=== PATIENT | female | born 1950 | race African-American/Black ===

== ENCOUNTER 2021-08-28 09:31 | Inpatient (IN) ==
[2021-08-28 10:28] LABS: Albumin 3.4 G/DL (3.4-5.0); Bilirubin,Total 0.7 MG/DL (0.20-1.00); Calcium 9.1 MG/DL (8.5-10.1); Potassium 3.3 MMOL/L (3.5-5.1); Total Protein 7.5 G/DL (6.4-8.2)
[2021-08-28 11:23] LABS: Basophils % 0.8 % (0.0-0.8); Eosinophils # 0.3 10*3/uL (0.0-0.87); Eosinophils % 5.7 % (0.00-10.9); Hematocrit 43.6 VOL% (35.7-47.0); Hemoglobin 14.1 GM/DL (12.0-16.0); Immature Granulocytes % 0.2 %; Immature Granulocytes Absolute 0.01 #; Lymphocytes # 1.2 10*3/uL (1.4-4.0); Lymphocytes % 24.5 % (21.3-54.2); Mean Corpuscular HGB Conc 32.3 GM/DL (32-36); Mean Platelet Volume 12.2 FL (9.6-12.0); Monocytes % 11.6 % (1.7-12.7); Neutrophils % 57.2 % (38.7-73.9); Platelet Count 203 T/CUMM (130-400); Red Blood Count 4.69 MC/CUMM (3.8-5.5); Red Cell Distribution Width 13.5 % (9.3-17.3); White Blood Count 4.7 T/CUMM (4-12)
[2021-08-28] MEDS ORDERED: POTASSIUM CHLORIDE 20 MEQ TABLET PO STA (19:33)
[2021-08-28] MEDS ORDERED: ENOXAPARIN 100 MG/ML SYRINGE SUBCUT STA (19:46)
[2021-08-28] MEDS ORDERED: hydrALAZINE 20 MG/1 ML VIAL IV STA (19:56)
[2021-08-28] MEDS ORDERED: GLUCAGON 1 MG VIAL IM PRN (20:55)
[2021-08-28] MEDS ORDERED: ACETAMINOPHEN 325 MG TABLET PO PRN (21:00)
[2021-08-28] MEDS ORDERED: hydrALAZINE 20 MG/1 ML VIAL IV PRN (21:00)
[2021-08-28] MEDS ORDERED: POTASSIUM CHLORIDE RIDER 10 MEQ/100 ML PREMIX IV PRN (21:12)
[2021-08-28] MEDS ORDERED: MAGNESIUM SULF RIDER 2 GM/50 ML PREMIX IV PRN (21:12)
[2021-08-28] MEDS ORDERED: MAGNESIUM SULF RIDER 4 GM/100 ML PREMIX IV PRN (21:12)
[2021-08-28] MEDS ORDERED: MONTELUKAST 10 MG TABLET PO PRN (21:12)
[2021-08-28] MEDS ORDERED: DEXTROSE 50% 25 GM/50 ML SYRINGE IV PRN (21:18)
[2021-08-28] MEDS: METOPROLOL TARTRATE 50 MG TABLET PO SCH (22:00)
[2021-08-28] MEDS: ASPIRIN EC 81 MG TABLET PO SCH (22:00)
[2021-08-28] MEDS ORDERED: FUROSEMIDE 40 MG/4 ML VIAL IV STA (22:01)
[2021-08-28 22:32] LABS: INR 1.4; PT Patient Result 15.6 SECS (10.5-12.0); Partial Thromboplastin Time 33.6 SECS (23.8-32.1)
[2021-08-28] MEDS: DOCUSATE SODIUM 100 MG CAPSULE PO SCH (23:00)
[2021-08-29 04:46] LABS: Basophils % 0.6 % (0.0-0.8); Eosinophils # 0.3 10*3/uL (0.0-0.87); Eosinophils % 4.4 % (0.00-10.9); Hematocrit 44.3 VOL% (35.7-47.0); Hemoglobin 14.3 GM/DL (12.0-16.0); Immature Granulocytes % 0.2 %; Immature Granulocytes Absolute 0.01 #; Lymphocytes # 1.1 10*3/uL (1.4-4.0); Lymphocytes % 17.3 % (21.3-54.2); Mean Corpuscular HGB Conc 32.3 GM/DL (32-36); Mean Corpuscular Volume 92.1 FL (87-102); Mean Platelet Volume 12.1 FL (9.6-12.0); Monocytes % 13.8 % (1.7-12.7); Neutrophils % 63.7 % (38.7-73.9); Platelet Count 212 T/CUMM (130-400); Red Blood Count 4.81 MC/CUMM (3.8-5.5); Red Cell Distribution Width 13.3 % (9.3-17.3); White Blood Count 6.3 T/CUMM (4-12)
[2021-08-29 04:58] LABS: INR 1.1; PT Patient Result 12.8 SECS (10.5-12.0); Partial Thromboplastin Time 32.5 SECS (23.8-32.1)
[2021-08-29 05:28] LABS: Calcium 8.9 MG/DL (8.5-10.1); Potassium 3.3 MMOL/L (3.5-5.1); Risk Ratio 4.59; Thyroid Stimulating Hormone 1.89 uIU/ml (0.358-3.74); VLDL Cholesterol 8.6 MG/DL
[2021-08-29] MEDS ORDERED: POTASSIUM CHLORIDE 20 MEQ TABLET PO SCH (09:00)
[2021-08-29] MEDS ORDERED: ENOXAPARIN 100 MG/ML SYRINGE SUBCUT SCH (09:00)
[2021-08-29] MEDS: FOLIC ACID 1 MG TABLET PO SCH (09:31)
[2021-08-29] MEDS: METOPROLOL TARTRATE 50 MG TABLET PO SCH ×2 (09:31→20:57)
[2021-08-29] MEDS: PANTOPRAZOLE 40 MG TABLET PO SCH (09:32)
[2021-08-29] MEDS: ASPIRIN EC 81 MG TABLET PO SCH (09:32)
[2021-08-29] MEDS: LOSARTAN 50 MG TABLET PO SCH (09:32)
[2021-08-29] MEDS: allopurinoL 100 MG TABLET PO SCH (09:32)
[2021-08-29] MEDS: DOCUSATE SODIUM 100 MG CAPSULE PO SCH ×2 (09:33→20:57)
[2021-08-29] MEDS: FUROSEMIDE 40 MG/4 ML VIAL IV SCH (09:33)
[2021-08-29] MEDS ORDERED: POTASSIUM CHLORIDE 20 MEQ TABLET PO ONE (10:05)
[2021-08-29] MEDS: CHOLECALCIFEROL 400 UNIT TABLET PO SCH (11:38)
[2021-08-29] MEDS: FLUTICASONE 110 MCG/PUFF INHALER 12 GM INH SCH ×3 (11:39→21:10)
[2021-08-29] MEDS: SPIRONOLACTONE 50 MG TABLET PO SCH (11:40)
[2021-08-29] MEDS: ASCORBIC ACID 500 MG TABLET PO SCH ×2 (11:40→20:55)
[2021-08-29] MEDS: NON-FORMULARY MEDICATION (Mirabegron [Myrbetriq] 25 mg Tablet Extended Release 24 Hr) PO SCH (11:40)
[2021-08-29] MEDS: MAGNESIUM OXIDE 400 MG TABLET PO SCH ×2 (11:41→20:56)
[2021-08-29] MEDS ORDERED: cefTRIAXone 1,000 MG in SODIUM CHLORIDE 0.9% 100 ML IV SCH ×2 (20:00→21:30)
[2021-08-29] MEDS: AMIODARONE 200 MG TABLET PO SCH (20:55)
[2021-08-29] MEDS: APIXABAN 5 MG TABLET PO SCH (20:56)
[2021-08-29] MEDS ORDERED: ETANERCEPT 50 MG/ML SUBCUT SCH (21:12)
[2021-08-29] MEDS: DOXYCYCLINE HYCLATE INJ 100 MG in SODIUM CHLORIDE 0.9% 100 ML IV SCH (21:58)
[2021-08-30] MEDS: ONDANSETRON 4 MG/2 ML VIAL IV PRN ×2 (04:11→21:45)
[2021-08-30 06:24] LABS: Basophils % 0.5 % (0.0-0.8); Eosinophils # 0.3 10*3/uL (0.0-0.87); Eosinophils % 4.8 % (0.00-10.9); Hematocrit 44.8 VOL% (35.7-47.0); Hemoglobin 14.7 GM/DL (12.0-16.0); Immature Granulocytes % 0.3 %; Immature Granulocytes Absolute 0.02 #; Lymphocytes # 1.2 10*3/uL (1.4-4.0); Lymphocytes % 19.6 % (21.3-54.2); Mean Corpuscular HGB Conc 32.8 GM/DL (32-36); Mean Corpuscular Volume 92.6 FL (87-102); Neutrophils % 60.8 % (38.7-73.9); Platelet Count 202 T/CUMM (130-400); Red Blood Count 4.84 MC/CUMM (3.8-5.5); Red Cell Distribution Width 13.2 % (9.3-17.3); White Blood Count 5.9 T/CUMM (4-12)
[2021-08-30 06:52] LABS: Calcium 8.8 MG/DL (8.5-10.1); Osmolality,Calculated 278.5 MOS/KG (273-304); Potassium 3.1 MMOL/L (3.5-5.1)
[2021-08-30] MEDS ORDERED: ENOXAPARIN 60 MG/0.6 ML SYRINGE SUBCUT SCH (09:00)
[2021-08-30] MEDS: FOLIC ACID 1 MG TABLET PO SCH (10:24)
[2021-08-30] MEDS: APIXABAN 5 MG TABLET PO SCH ×2 (10:24→21:10)
[2021-08-30] MEDS: CHOLECALCIFEROL 400 UNIT TABLET PO SCH (10:24)
[2021-08-30] MEDS: MAGNESIUM OXIDE 400 MG TABLET PO SCH ×2 (10:24→21:09)
[2021-08-30] MEDS: METOPROLOL TARTRATE 50 MG TABLET PO SCH ×2 (10:24→21:10)
[2021-08-30] MEDS: AMIODARONE 200 MG TABLET PO SCH ×2 (10:25→21:10)
[2021-08-30] MEDS: ASPIRIN EC 81 MG TABLET PO SCH (10:25)
[2021-08-30] MEDS: predniSONE 20 MG TABLET PO SCH (10:25)
[2021-08-30] MEDS: PANTOPRAZOLE 40 MG TABLET PO SCH (10:25)
[2021-08-30] MEDS: POTASSIUM CHLORIDE 20 MEQ TABLET PO SCH (10:27)
[2021-08-30] MEDS: LOSARTAN 50 MG TABLET PO SCH (10:27)
[2021-08-30] MEDS: SPIRONOLACTONE 50 MG TABLET PO SCH (10:27)
[2021-08-30] MEDS: DOCUSATE SODIUM 100 MG CAPSULE PO SCH ×2 (10:27→21:10)
[2021-08-30] MEDS: ASCORBIC ACID 500 MG TABLET PO SCH ×2 (10:27→21:10)
[2021-08-30] MEDS: FUROSEMIDE 40 MG/4 ML VIAL IV SCH (10:28)
[2021-08-30] MEDS: allopurinoL 100 MG TABLET PO SCH (10:34)
[2021-08-30] MEDS: DOXYCYCLINE HYCLATE INJ 100 MG in SODIUM CHLORIDE 0.9% 100 ML IV SCH (10:36)
[2021-08-30] MEDS: NON-FORMULARY MEDICATION (Mirabegron [Myrbetriq] 25 mg Tablet Extended Release 24 Hr) PO SCH (10:57)
[2021-08-30] MEDS: FLUTICASONE 110 MCG/PUFF INHALER 12 GM INH SCH ×2 (11:00→21:45)
[2021-08-30] MEDS: POTASSIUM CHLORIDE 20 MEQ TABLET PO PRN ×2 (21:10→23:07)
[2021-08-31] MEDS: POTASSIUM CHLORIDE 20 MEQ TABLET PO PRN ×2 (01:11→03:11)
[2021-08-31 05:43] LABS: Calcium 9.1 MG/DL (8.5-10.1); Osmolality,Calculated 277.7 MOS/KG (273-304); Potassium 4.2 MMOL/L (3.5-5.1)
[2021-08-31 05:49] LABS: Basophils % 0.3 % (0.0-0.8); Eosinophils % 0.5 % (0.00-10.9); Hematocrit 45.4 VOL% (35.7-47.0); Hemoglobin 14.7 GM/DL (12.0-16.0); Immature Granulocytes % 0.3 %; Immature Granulocytes Absolute 0.02 #; Lymphocytes # 1.1 10*3/uL (1.4-4.0); Lymphocytes % 14.1 % (21.3-54.2); Mean Corpuscular HGB Conc 32.4 GM/DL (32-36); Mean Corpuscular Volume 93.6 FL (87-102); Mean Platelet Volume 12.1 FL (9.6-12.0); Monocytes % 13.5 % (1.7-12.7); Neutrophils % 71.3 % (38.7-73.9); Platelet Count 211 T/CUMM (130-400); Red Blood Count 4.85 MC/CUMM (3.8-5.5); Red Cell Distribution Width 13.2 % (9.3-17.3); White Blood Count 7.8 T/CUMM (4-12)
[2021-08-31] MEDS: AMIODARONE 200 MG TABLET PO SCH (09:17)
[2021-08-31] MEDS: MAGNESIUM OXIDE 400 MG TABLET PO SCH (09:17)
[2021-08-31] MEDS: predniSONE 20 MG TABLET PO SCH (09:17)
[2021-08-31] MEDS: LOSARTAN 50 MG TABLET PO SCH (09:18)
[2021-08-31] MEDS: APIXABAN 5 MG TABLET PO SCH (09:18)
[2021-08-31] MEDS: ASPIRIN EC 81 MG TABLET PO SCH (09:18)
[2021-08-31] MEDS: ASCORBIC ACID 500 MG TABLET PO SCH (09:18)
[2021-08-31] MEDS: FOLIC ACID 1 MG TABLET PO SCH (09:18)
[2021-08-31] MEDS: POTASSIUM CHLORIDE 20 MEQ TABLET PO SCH (09:18)
[2021-08-31] MEDS: PANTOPRAZOLE 40 MG TABLET PO SCH (09:19)
[2021-08-31] MEDS: FLUTICASONE 110 MCG/PUFF INHALER 12 GM INH SCH (09:19)
[2021-08-31] MEDS: SPIRONOLACTONE 50 MG TABLET PO SCH (09:19)
[2021-08-31] MEDS: CHOLECALCIFEROL 400 UNIT TABLET PO SCH (09:19)
[2021-08-31] MEDS: METOPROLOL TARTRATE 50 MG TABLET PO SCH (09:19)
[2021-08-31] MEDS: allopurinoL 100 MG TABLET PO SCH (09:19)
[2021-08-31] MEDS: DOCUSATE SODIUM 100 MG CAPSULE PO SCH (09:19)
[2021-08-31] MEDS: NON-FORMULARY MEDICATION (Mirabegron [Myrbetriq] 25 mg Tablet Extended Release 24 Hr) PO SCH (09:36)
[2021-08-31 12:00] VITALS: BP 134/92
== END 2021-08-31 14:33 | disposition home or self-care (01) | DRG 308 ==
LOC: N.EDINP 09:31 → N.ADMINP 09:31 → N.ED 09:31 → SUATTDRO 20:55 → N.TELES 08-29 12:44
PROVIDERS: ADMIT Hospitalist; ATTEND Hospitalist